=== PATIENT | male | born 1985 | race African-American/Black ===

== ENCOUNTER 2023-12-09 09:07 | Emergency (ER) | payer OTHER ==
[~2023-12-09] VITALS: Ht 193 cm; Wt 109.4 kg
[2023-12-09] MEDS ORDERED: NORVASC10 MG PO (09:26)
[2023-12-09] MEDS ORDERED: PROZAC40 MG PO (09:26)
[2023-12-09] MEDS ORDERED: VITAMIN D325 MC2 PO (09:26)
[2023-12-09] MEDS ORDERED: NASACORT10.8 ML NAS (09:27)
[2023-12-09] MEDS ORDERED: ALL DAY ALLERGY10 M3 PO (09:27)
[2023-12-09] MEDS ORDERED: MELATONIN5 M2 PO (09:27)
[2023-12-09 10:50] VITALS: BP 153/100
== END 2023-12-09 10:50 | disposition home or self-care (01) ==
LOC: ED 09:07
DX: S93.401A Sprain of unspecified ligament of right ankle, initial encounter (principal); X50.1XXA Overexertion from prolonged static or awkward postures, initial encounter; Y93.66 Activity, soccer; F32.A Depression, unspecified; Z79.899 Other long term (current) drug therapy
CPT/HCPCS: 73610; 93971